=== PATIENT | female | born 1930 | race Caucasian/White ===

== ENCOUNTER 2018-02-20 10:57 | Emergency (ER) | payer MEDICARE, BC ==
[2018-02-20 11:20] VITALS: BP 134/50
--- NOTE | 2018-02-20 11:32 | UC ---
Abdominal Pain Male HPI - HPI Summary HPI Summary: Patient is year old , without any significant past medical history who present today with for past days. Diarrhea and lower abd tender to touch x5 weeks. Denies nausea/vomitting. Denies dysuria. States nothing in her diet has changed. No recent antibiotic use. States she usually has BM "right after I eat" and states last couple days diarrhea has gotten worse. Associated symptoms: No sick contacts . No skin rash. Denies any new soap, detergent , cosmetics, food or a possible exposure. Denies any fever, chills, cough chest pain or shortness of breath . No diaphoresis. Denies any abdominal pain , nausea or vomiting , diarrhea or constipation. There is no stridor, grunting or audible wheezing drooling, chest retraction , , dehydration, Denies any conjunctival redness, irritation, increased lacrimation. Denies any grittiness Denies any radicular symptoms, numbness , tingling , incontinence, saddle anesthesia , motor or sensory disturbance. He has tried over the counter medication without much relief. Negative - History of Current Complaint Chief Complaint: UCGI Stated Complaint: DIARRHEA Time Seen by Provider: 02/20/18 11:19 Hx Obtained From: Patient Pain Intensity: 0 - Allergies/Home Medications Allergies/Adverse Reactions: Allergies Allergy/AdvReac Type Severity Reaction Status Date / Time No Known Allergies Allergy Verified 02/20/18 11:11 Home Medications: Home Medications Atorvastatin* [Lipitor 40 MG*] 1 tab QPM 02/20/18 [History Confirmed 02/20/18] Levothyroxine TAB* [Synthroid 75 MCG TAB*] 1 tab DAILY 02/20/18 [History Confirmed 02/20/18] PMH/Surg Hx/FS Hx/Imm Hx Previously Healthy: Yes - Surgical History Surgical History: Yes Surgery Procedure, Year, and Place: Breast surgeries done in [facility] and [place]. bilat - Social History Alcohol Use: Rare Substance Use Type: None Smoking Status (MU): Never Smoked Tobacco Physical Exam - Summary Physical Exam Summary: Physical Exam: Const: Appears well. No signs of apparent distress present. Alert and oriented x 3. Musculo: Walks with a normal gait. Head/Face: Atraumatic, normocephalic on inspection. Eyes: EOMI and PERRLA in both eyes. Conjunctivae clear. No discharge noted ENT: Hearing normal, TM normal appearing bilaterally . Respiratory: Respirations are unlabored. Lungs clear to auscultation bilaterally, no wheezing , rhonchi or rales noted . CVS: Regular rate and Rhythm, S1S2 normal , no murmurs identified. Extremities: Peripheral circulation is grossly normal. Pulses 2+ Abdomen : Soft non tender , nondistended , Bowel sounds present . No guarding , rebound tenderness or rigidity noted. Skin: No lesions or rash located on the upper extremities or on the lower extremities. Neuro: Cranial nerves II to XII intact, motor and sensory intact. DTR Intact bilaterally. Mood is normal. Affect is normal. Triage Information Reviewed: Yes Vital Signs: Initial Vital Signs Temp 98.1 F 02/20/18 11:12 Pulse 73 02/20/18 11:12 Resp 18 02/20/18 11:12 BP 134/50 02/20/18 11:12 Pulse Ox 100 02/20/18 11:12 Vital Signs Reviewed: Yes Abd Pain Male Course/Dx - Course Course Of Treatment: During the visit today, we obtained . We discussed the findings and further plan. I will prescribe the medication to the pharmacy . Patient expressed understanding . Discharge - Sign-Out/Discharge Documenting (check all that apply): Patient Departure All imaging exams completed and their final reports reviewed: No Studies - Discharge Plan Condition: Stable Referrals: Sam Pope MD [Primary Care Provider] - 1 Week Additional Instructions: Please start taking the medication as prescribed to the pharmacy . Follow up with your primary care doctor in 2 days. Please follow up with .. for the consult Return to Urgent care / ER if symptoms get worse. - Billing Disposition and Condition Condition: STABLE
--- NOTE | 2018-02-20 11:35 | UC ---
Abdominal Pain Female HPI - HPI Summary HPI Summary: Patient is 87 year old female who present today with for past days. Diarrhea and lower abd tender to touch x5 weeks.States she usually has BM " right after I eat" and states last couple days diarrhea has gotten worse. Abdominal pain is very mild generalized lower abdominal pain. She reports that she has to go to the bathroom every time she eats within half an hour. The stools are liquid and approximately 4-5 times a day. She denies any blood or any painful defecation. She does notice the mucus in the stools. No sick contacts . No skin rash. Denies any fever, chills, cough chest pain or shortness of breath . Denies any nausea or vomiting , diarrhea or constipation. States nothing in her diet has changed. No recent antibiotic use. Denies any recent recent travels She has not tried any medication or any treatment so far but has tried to cut down on fruits and vegetables. Her primary care physician is in [place] and she comes to head out to [place] but is unsure of the date as of now - History of Current Complaint Chief Complaint: UCGI Stated Complaint: DIARRHEA Time Seen by Provider: 02/20/18 11:19 Hx Obtained From: Patient ?: No - postmenopausal Pain Intensity: 0 Allergies/Adverse Reactions: Allergies Allergy/AdvReac Type Severity Reaction Status Date / Time No Known Allergies Allergy Verified 02/20/18 11:11 Home Medications: Home Medications Atorvastatin* [Lipitor 40 MG*] 1 tab QPM 02/20/18 [History Confirmed 02/20/18] Levothyroxine TAB* [Synthroid 75 MCG TAB*] 1 tab DAILY 02/20/18 [History Confirmed 02/20/18] PMH/Surg Hx/FS Hx/Imm Hx Previously Healthy: Yes Endocrine History: Hypothyroidism, Dyslipidemia Other Endocrine History: negative Other Cardiovascular History: negative Other Respiratory History: negative Other GI/ History: negative Other Neurological History: negative Other Cancer History: negative - Surgical History Surgical History: Yes Surgery Procedure, Year, and Place: Breast surgeries done in [facility] and [place]. bilat - Social History Alcohol Use: Rare Substance Use Type: None Smoking Status (MU): Never Smoked Tobacco Review of Systems Constitutional: Negative Skin: Negative Eyes: Negative ENT: Negative Respiratory: Negative Cardiovascular: Negative Gastrointestinal: Abdominal Pain, Diarrhea Genitourinary: Negative Motor: Negative Neurovascular: Negative Musculoskeletal: Negative Neurological: Negative Is Patient Immunocompromised?: No All Other Systems Reviewed And Are Negative: Yes Physical Exam - Summary Physical Exam Summary: Physical Exam: Const: Appears well. No signs of apparent distress present. Alert and oriented x 3. Musculo: Walks with a normal gait. Head/Face: Atraumatic, normocephalic on inspection. Eyes: EOMI and PERRLA in both eyes. Conjunctivae clear. No discharge noted ENT: Hearing normal, TM normal appearing bilaterally . Respiratory: Respirations are unlabored. Lungs clear to auscultation bilaterally, no wheezing , rhonchi or rales noted . CVS: Regular rate and Rhythm, S1S2 normal , no murmurs identified. Extremities: Peripheral circulation is grossly normal. Pulses 2+ Abdomen : Soft, mild generalized tenderness in the lower abdominal - suprapubic area. nondistended , Bowel sounds present . Minimal guarding , no rebound tenderness or rigidity noted. Skin: No lesions or rash located on the upper extremities or on the lower extremities. Neuro: Cranial nerves II to XII intact, motor and sensory intact. DTR Intact bilaterally. Mood is normal. Affect is normal. Triage Information Reviewed: Yes Vital Signs: Initial Vital Signs Temp 98.1 F 02/20/18 11:12 Pulse 73 02/20/18 11:12 Resp 18 02/20/18 11:12 BP 134/50 02/20/18 11:12 Pulse Ox 100 02/20/18 11:12 Vital Signs Reviewed: Yes Abd Pain Female Course/Dx - Course Course Of Treatment: During the visit today, we obtained urine sample and also gave her the stool kit for further evaluation . She is having gastrocolic reflex and There is a possibility of either malabsorption or a possible enterocolitis with parasitic infection. Her urine analysis came back positive for 1+ leukoesterase. Plan to treat it with nitrofurantoin. I advised her that she should bring a stool sample back first before starting the antibiotic. We discussed the findings and further plan. We will call her with the results , since her primary care doctor is in [place], I will refer her to the gastroenterologic here for further evaluation and management. Since she has some abdominal pain and we discussed the option of getting further imaging including CT scan to rule out any intra-abdominal process, she declined and wants to wait until a stool study results are done. Patient expressed understanding . - Differential Dx/Diagnosis Provider Diagnoses: Chronic diarrhea. Malabsorption. Enterocolitis. UTI Discharge - Sign-Out/Discharge Documenting (check all that apply): Patient Departure All imaging exams completed and their final reports reviewed: No Studies - Discharge Plan Condition: Stable Disposition: HOME Patient Education Materials: Urinary Tract Infection in Women (ED), Chronic Diarrhea (ED), Abdominal Pain (ED) Referrals: Sam Pope MD [Primary Care Provider] - 1 Week Chris Duarte MD [Medical Doctor] - 3 Days Additional Instructions: Please bring your stool sample for lab testing when it's available. Please start taking the antibiotics for a possible UTI, it has been prescribed to her pharmacy. Please do not start the antibiotics prior to providing the stool sample. We will call you with the results once available and if any treatment is required Her primary care physician is in [place] and she is not sure of when she is planning to go there. Please follow up with gastroenterology for further evaluation and management Return to Urgent care / ER if symptoms get worse. - Billing Disposition and Condition Condition: STABLE Disposition: Home
--- NOTE | 2018-02-23 07:16 | UC ---
- Progress Note Progress Note: stoolL slightly elevated stool fat - suggested of poor absoprtion recommend f/u with GI as referred azar 02/23/18 Discharge - Sign-Out/Discharge Documenting (check all that apply): Post-Discharge Follow Up All imaging exams completed and their final reports reviewed: No Studies - Discharge Plan Condition: Stable Disposition: HOME Prescriptions: Nitrofurantoin Monohyd/M-Cryst [Macrobid 100 mg Capsule] 100 mg PO BID 5 Days # 10 cap Patient Education Materials: Urinary Tract Infection in Women (ED), Chronic Diarrhea (ED), Abdominal Pain (ED) Referrals: Sam Pope MD [Primary Care Provider] - 1 Week Chris Duarte MD [Medical Doctor] - 3 Days Additional Instructions: Please bring your stool sample for lab testing when it's available. Please start taking the antibiotics for a possible UTI, it has been prescribed to her pharmacy. Please do not start the antibiotics prior to providing the stool sample. We will call you with the results once available and if any treatment is required Her primary care physician is in [place] and she is not sure of when she is planning to go there. Please follow up with gastroenterology for further evaluation and management Return to Urgent care / ER if symptoms get worse. - Billing Disposition and Condition Condition: STABLE Disposition: Home
== END 2018-02-20 12:19 | disposition home or self-care (01) ==
LOC: UCCORT 10:57
DX: K90.9 Intestinal malabsorption, unspecified (principal); K52.9 Noninfective gastroenteritis and colitis, unspecified; N39.0 Urinary tract infection, site not specified; E78.5 Hyperlipidemia, unspecified; E03.9 Hypothyroidism, unspecified; Z79.899 Other long term (current) drug therapy
CPT/HCPCS: 81003; 87086; 99212; G0463